=== PATIENT | male | born 1970 | race Caucasian/White ===

== ENCOUNTER 2025-11-03 14:34 | Emergency (ER) | payer OTHER ==
[~2025-11-03] VITALS: Ht 175.3 cm; Wt 90.8 kg
[2025-11-03 14:55] VITALS: BP 139/80; PULSE 70; RESP 16; O2SAT 99
--- NOTE | 2025-11-03 15:02 | Physician Documentation ---
History of Present Illness ~ Chief Complaint: Laceration Stated Complaint: ARM LAC WC Time Seen by MD: 14:46 HPI 65-year-old male presents to the ED after injuring his left upper extremity today while drilling. Eighteen incurred a laceration on the anterior aspect of his left wrist. He adds that he has full range of motion a slight tingling in his left thumb. bleeding is currently controlled Medication Reconciliation Allergies: Coded Allergies: No Known Allergies (Unverified , 11/03/25) Scheduled Sulfamethoxazole/Trimethoprim (Septra Ds Tab), 1 TAB PO Q12H Review of Systems All Other Systems at this time: Reviewed and Negative ROS As stated above in the HPI, otherwise all systems are reviewed and negative. Physical Exam Vital Signs: Temperature: 98.9, Source: Temporal, Heart Rate: 70, Respiratory Rate: 16, BP: 139/80, Pulse Oximetry: 99, Weight: 90.800 Oxygen Flow Rate: 0 Physical Exam General: Alert, no apparent distress. Extremities: Normal range of motion, no deformity. 4 cm laceration on the anterior aspect of the left wrist. Laceration is linear appears to approximate Neurologic: Oriented x4. Psychiatric: Normal mood and affect. Skin: Normal color, warm and dry. No edema, no ecchymosis. Procedures Laceration Repair : Anesthesia: Lidocaine w/ Epi Suture Size/Type: 4-0 Number of Superficial Sutures: 1 Tolerated Procedure Well?: yes, no complications Procedure Note running stitch Progress Results/Orders Results/Orders Vital Signs 11/03/25 11/03/25 14:55 16:24 Temp 98.9 98.9 Pulse 70 Resp 16 B/P (MAP) 139/80 Pulse Ox 99 O2 Flow Rate 0 Medical Decision Making Additional information obtaine: old records Findings This is a 55-year-old male was treated via laceration repair via a running stitch. Patient tolerated procedure well flat for easily aligned and appr oximated. 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 General Diff Dx:Considerations: Unlikely: Abrasion, Contusion, Fracture, Hematoma, Laceration, Malunion, Neurovascular injury, Open fracture, Sprain, Ulcer, Other Shoulder Diff Dx:Consideration: Unlikely: AC separation, Adhesive capsulitis, Arthritis, Bicipital tendonitis, Calcific tendonitis, Cervical disc disease, Contusion, Dislocation, Fracture-humerus, Fracture-scapula, Fracture-clavicle, GB disease, Hematoma, Impingement syndrome, Myocardial infarction, Neurovascular injury, Open fracture-humerus, Open fracture-scapula, Open fracture-clavicle, Rotator cuff injury, SC dislocatoin, Sprain, Subacromial bursitis, Other Elbow Diff Dx:Considerations: Unlikely: Abrasion, Arthritis, Contustion, DJD, Fracture-humerus, Fracture-radial head, Fracture-radius, Fracture-ulna, Gout, Hematoma, Laceration, Neurovascular injury, Olecranon bursitis, Open fracture, Osteomyelitis, Radial head subluxation, Rheumatoid arthritis, Septic, Sprain, Ulcer, Other Wrist Diff Dx:Considerations: Include: Abrasion, Arthritis, DJD, Gout, Rheumatoid, Septic, Carpal tunnel snydrome, Contusion, Dislocation, Fracture- carpal, Fracture-radius, Fracture-ulna, Ganglion, Laceration, Neurovascular injury, Open fracture, Strain, Other Hand Diff Dx:Considerations: Unlikely: Abrasion, Arthritis, Contusion, DJD, Felon, Fracture-carpal, Fracture-metacarpal, Fracture-phalynx, Fracture-radius, Fracture-ulna, Gout, Hematoma, Herpetic aure, Laceration, Neurovascular injury, Open fracture, Paronychia, Rheumatoid arthritis, Septic, Sprain, Subungual hematoma, Tenosynovitis, Volar plate injury, Cellulitis, Malunion, Other Finger Diff Dx:Considerations: Unlikely: Abrasion, Cellulitis, Contusion, Dislocation, Fracture, Hematoma, Laceration, Neurovascular injury, Open fracture, Subungual hematoma, Other Departure Disposition: 01 HOME / SELF CARE / HOMELESS Impression: Primary Impression: Laceration Discharge Instructions: Laceration Care, Adult, [id number] Additional Instructions: Have sutures removed in 7-10 days take all of the oral antibiotics that I prescribed keep the area clean and dry Referrals: NO PRIMARY CARE PROVIDER (PCP) Prescriptions Sulfamethoxazole/Trimethoprim (Septra Ds Tab) 800 Mg/160 Mg Tablet 1 TAB PO Q12H for 10 Days, #20 TAB Prov: CHEVY NICKERSON NP 11/03/25 Signature Scribe Signature: [email or web address] Attestation: Scribed for Chevy Nickerson Np by Chevy Love NP . 11/03/25 23:21 CHEVY NICKERSON NP Nov 03, 2025 15:02 JAELYN OLEA MD Nov 03, 2025 17:30
[2025-11-03] MEDS: LIDOcaine 1% W/epiNEPHrine 1:100,000 20ml vial SQ ONE (15:23)
[2025-11-03] MEDS ORDERED: SULF-16 PO (16:03)
[2025-11-03 16:24] VITALS: TEMP 98.9
== END 2025-11-03 16:27 | disposition home or self-care (01) ==
LOC: ER 14:35
DX: S41.112A Laceration without foreign body of left upper arm, initial encounter (principal); Z79.899 Other long term (current) drug therapy; X58.XXXA Exposure to other specified factors, initial encounter; Y93.89 Activity, other specified; Y92.89 Other specified places as the place of occurrence of the external cause; Y99.8 Other external cause status
CPT/HCPCS: 12002; 99283; J7030; A6446; A6449